=== PATIENT | female | born 1955 | race Caucasian/White ===

== ENCOUNTER → 2021-08-29 | Outpatient (POV) | payer MEDICARE ==
[~2021-08-29] VITALS: Ht 152.4 cm; Wt 58.1 kg
[~2021-08-29] MED LIST: NYST50SS PO; PROTPAK PO; TRAN1DIS4 TOP
[2021-08-29 14:50] VITALS: BP 167/77
== END ==
LOC: M IRPOV 14:37
PROVIDERS: ATTEND Radiology Diagnostic Radiology
DX: C76.0 Malignant neoplasm of head, face and neck (principal); Z88.6 Allergy status to analgesic agent; Z88.5 Allergy status to narcotic agent; Z92.3 Personal history of irradiation; Z93.1 Gastrostomy status